=== PATIENT | female | born 1955 | race Caucasian/White ===

== ENCOUNTER 2016-06-30 18:12 | Emergency (ER) | payer SELFPAY ==
[2016-06-30 18:19] VITALS: TEMP 97.9
--- NOTE | 2016-06-30 19:24 | C.PDOC ---
History Of Present Illness 60F c/o headache that goes from the top of her head to the back and neck pain since yesterday. she took her BP several times today thinking maybe it was high. she does get similar headaches from time to time. no fever, chills, nausea , vomiting, visual change, or nasal congestion. Time Seen by Provider: 06/30/16 19:13 Chief Complaint (Nursing): High Blood Pressure Past Medical History Vital Signs: Last Vital Signs Temp 97.9 F 06/30/16 18:14 Pulse 75 06/30/16 20:24 Resp 20 06/30/16 20:24 BP 161/78 H 06/30/16 20:24 Pulse Ox 98 06/30/16 22:23 Family History: States: Other Other Family History: nc - Social History Hx Alcohol Use: No Hx Substance Use: No Review Of Systems Constitutional: Negative for: Fever, Chills, Weakness, Malaise Eyes: Negative for: Vision Change ENT: Negative for: Nose Discharge, Nose Congestion Cardiovascular: Negative for: Chest Pain Respiratory: Negative for: Shortness of Breath Gastrointestinal: Negative for: Nausea, Vomiting Neurological: Negative for: Weakness, Numbness Physical Exam - Physical Exam Appears: Well, Non-toxic, No Acute Distress Skin: Warm, Dry Head: Atraumatic, Normacephalic Eye(s): bilateral: PERRL, EOMI Nose: No Discharge Oral Mucosa: Moist Neck: Normal ROM, Supple Cardiovascular: Rhythm Regular Respiratory: Normal Breath Sounds, No Decreased Breath Sounds Extremity: No Swelling Neurological/Psych: Oriented x3, Normal Cranial Nerves, No Cerebellar Signs, Normal Motor, Normal Sensation, Other (no focal deficits) Gait: Steady ED Course And Treatment O2 Sat by Pulse Oximetry: 98 Medical Decision Making Medical Decision Makinpm the pt reports feeling much better. she is comfortable w dc. follow up and return precautions advised. sinusitis seen on CT does not correlate clinically EXAM: CT Head Without Intravenous Contrast CLINICAL HISTORY: 60 years old, female; Condition or disease; Headache; Headache not specified TECHNIQUE: Axial computed tomography images of the head/brain without intravenous contrast. This CT exam was performed using one or more of the following dose reduction techniques: automated exposure control, adjustment of the mA and/or kV according to patient size, and/or use of iterative reconstruction technique. EXAM DATE/TIME: Exam ordered 06/30/2016 7:36 PM COMPARISON: No relevant prior studies available. FINDINGS: Brain: Unremarkable. No hemorrhage. No significant white matter disease. No edema. Ventricles: Unremarkable. No ventriculomegaly. Bones/joints: Unremarkable. No acute fracture. Soft tissues: Unremarkable. Sinuses: Air fluid levels are noted within the right sphenoid sinus. Mucosal thickening is noted within the ethmoid air cells bilaterally. Mastoid air cells: Unremarkable as visualized. No mastoid effusion. IMPRESSION: Acute sinusitis involving the sphenoid sinus. Chronic sinusitis involving the ethmoid air cells Disposition - Disposition Referrals: [facility] [Outside] Disposition: HOME/ ROUTINE Disposition Time: 22:17 Condition: IMPROVED Additional Instructions: Please follow up with a primary doctor. Return to the ER for any worsening symptoms or for any other concerns. Instructions: Acute Headache (ED) Forms: Gen Discharge Inst Turkmen Print Language: GUAMANIAN - Clinical Impression Clinical Impression: Headache
[2016-06-30 20:25] VITALS: BP 161/78; PULSE 75; RESP 20
[2016-06-30 22:19] VITALS: O2SAT 98
--- NOTE | 2016-07-01 07:22 | CT ---
PROCEDURE: CT HEAD WITHOUT CONTRAST. HISTORY: headache COMPARISON: None available. TECHNIQUE: Axial computed tomography images were obtained through the head/brain without intravenous contrast. Radiation dose: Total exam DLP = 637 mGy-cm. This CT exam was performed using one or more of the following dose reduction techniques: Automated exposure control, adjustment of the mA and/or kV according to patient size, and/or use of iterative reconstruction technique. FINDINGS: HEMORRHAGE: No intracranial hemorrhage. BRAIN: No mass effect or edema. No atrophy or chronic microvascular ischemic changes. Few punctate hypodensities in the bilateral basal ganglia which may represent prominent perivascular spaces versus small lacunar infarcts. VENTRICLES: Unremarkable. No hydrocephalus. CALVARIUM: Unremarkable. PARANASAL SINUSES: Air-fluid levels noted within the right sphenoid sinus. Mucosal thickening noted within the ethmoid air cells bilaterally. MASTOID AIR CELLS: Unremarkable as visualized. No inflammatory changes. OTHER FINDINGS: None. IMPRESSION: No acute intracranial abnormality. Probable acute sinusitis involving the sphenoid sinus. Probable chronic sinusitis involving the ethmoid air cells. These findings were preliminarily reported at 8:31 p.m. on 06/30/[address] Tasia Marshall from [facility].
--- NOTE | 2016-07-02 00:26 | CARD ---
APPROVED REPORT EKG Measurement Heart [id number] <Conclusion> Normal sinus rhythm Normal ECG
== END 2016-06-30 22:29 | disposition home or self-care (01) ==
LOC: C.ER 18:12
DX: R51 Headache (principal)

== ENCOUNTER 2017-05-23 15:10 | Emergency (ER) | payer OTHER ==
[2017-05-23 15:21] VITALS: TEMP 97.8; O2SAT 98
--- NOTE | 2017-05-23 15:54 | C.PDOC ---
History Of Present Illness 61 year old female presents to ED for evaluation of lightheadedness, and tingling sensation to left hand that developed while getting dressed at 11:00 this morning. Pt states she checked her blood pressure at that time, and noticed it was high. She denies any chest pain, SOB, headache, weakness, or any other associated symptoms at present time. She denies any active symptoms at this time. Pt also complains of epigastric abdominal pain for the past 2 weeks and left flank pain for the last 3 months, notes she has history of frequent UTIs, and has had urethral reconstruction surgery in the past. Pt states she was evaluated by her PMD for this abdominal pain, and was started on omeprazole , and has a scheduled outpatient ultrasound tomorrow. Time Seen by Provider: 05/23/17 15:31 Chief Complaint (Nursing): High Blood Pressure History Per: Patient, Family History/Exam Limitations: no limitations Past Medical History Reviewed: Historical Data, Nursing Documentation, Vital Signs Vital Signs: Last Vital Signs Temp 97.8 F 05/23/17 15:18 Pulse 58 L 05/23/17 16:36 Resp 16 05/23/17 16:36 BP 132/57 L 05/23/17 16:36 Pulse Ox 98 05/23/17 16:36 - Medical History PMH: Gastritis, HTN Family History: States: Unknown Family Hx - Social History Hx Alcohol Use: No Hx Substance Use: No - Immunization History Hx Tetanus Toxoid Vaccination: No Hx Influenza Vaccination: No Hx Pneumococcal Vaccination: No Review Of Systems Except As Marked, All Systems Reviewed And Found Negative. Constitutional: Negative for: Fever, Chills Cardiovascular: Positive for: Light Headedness. Negative for: Chest Pain Respiratory: Negative for: Shortness of Breath Gastrointestinal: Positive for: Nausea, Abdominal Pain. Negative for: Vomiting , Diarrhea Neurological: Positive for: Other (tingling to left hand) Physical Exam - Physical Exam Additional Physical Exam Comments: Constitutional: No acute distress. Head: Normocephalic. Atraumatic. Eyes: PERRL. ENT: Moist mucous membranes. Neck: Supple. Cardiovascular: Regular rate. Radial pulse 2+ bilaterally. Chest: No tenderness. Respiratory: Clear to auscultation bilaterally. GI: Soft. Nontender. Nondistended. Back: No CVA tenderness. Musculoskeletal: No tenderness or swelling of extremities. Skin: No rash. Neurologic: Alert, no focal deficit. Oriented x 3. Cranial nerves II-XII intact. Sensation to light touch intact bilaterally. Motor 5/5 x 4. Gait normal. ED Course And Treatment - Laboratory Results Result Diagrams: 05/23/17 15:54 05/23/17 15:54 O2 Sat by Pulse Oximetry: 98 Medical Decision Making Medical Decision Making: Plan: Blood work Urinalysis Urine culture CXR Reassess EKG: NSR 61bpm, No ST/T wave changes. CXR no consolidation. No effusion. Normal silhouette. Patient states she feels well and has no symptoms. Will discharge, instructed to keep appointment for US tomorrow. Disposition - Disposition Disposition: HOME/ ROUTINE Disposition Time: 17:10 Condition: STABLE Instructions: High Blood Pressure in Adults Forms: [facility] (Armenian), Gen Discharge Inst [place] - Clinical Impression Clinical Impression: Hypertension - Scribe Statement The provider has reviewed the documentation as recorded by the Kyleighibpeter Lopez All medical record entries made by the Kyleighibpeter were at my direction and personally dictated by me. I have reviewed the chart and agree that the record accurately reflects my personal performance of the history, physical exam, medical decision making, and the department course for this patient. I have also personally directed, reviewed, and agree with the discharge instructions and disposition.
[2017-05-23 15:57] LABS: BASO # 0.1 K/uL (0.0-0.2); BASO % 0.7 % (0.0-2.0); EOS # 0.1 K/uL (0.0-0.7); EOS % 0.8 % (0.0-4.0); HEMOGLOBIN 14.3 g/dL (11.0-16.0); LYMPH # 2.6 K/uL (1.0-4.3); LYMPH % 29.7 % (20.0-40.0); MEAN CELL VOLUME 89.3 fL (81.0-99.0); MEAN CORPUSCULAR HGB CONC 34.8 g/dL (33.0-37.0); MEAN PLATELET VOLUME 8.2 fL (7.2-11.7); MONO # 0.6 K/uL (0.0-0.8); MONO % 7.3 % (0.0-10.0); NEUT # 5.4 K/uL (1.8-7.0); NEUT % 61.5 % (50.0-75.0); RBC 4.62 Mil/uL (3.80-5.20); RED CELL DISTRIBUTION WIDTH 13.5 % (11.5-14.5); WHITE BLOOD COUNT 8.8 K/uL (4.8-10.8)
[2017-05-23 16:09] LABS: ALB/GLOB RATIO 1.2 (1.0-2.1); ALBUMIN 4.5 g/dL (3.5-5.0); ALT/SGPT 22 U/L (9-52); AST/SGOT 29 U/L (14-36); BLOOD UREA NITROGEN 12 mg/dL (7-17); CALCIUM 9.5 mg/dl (8.6-10.4); GFR AFRICAN-AMERICAN > 60; GFR NON-AFRICAN AMERICAN > 60; LIPASE 67 U/L (23-300)
[2017-05-23 16:51] LABS: SQUAMOUS EPITHIAL 3 /hpf (0-5); URINE BACTERIA RARE (<OCC); URINE BILIRUBIN NEGATIVE (NEGATIVE); URINE BLOOD NEGATIVE (NEGATIVE); URINE CLARITY Clear (Clear); URINE COLOR Straw (YELLOW); URINE GLUCOSE (UA) NORMAL (Normal); URINE LEUKOCYTE ESTERASE NEG Leu/uL (Negative); URINE PROTEIN NEGATIVE (NEGATIVE); URINE UROBILINOGEN NORMAL mg/dL (0.2-1.0)
[2017-05-23 16:54] VITALS: BP 132/57; PULSE 58; RESP 16
--- NOTE | 2017-05-23 17:10 | RAD ---
Chest x-ray two views History: Hypertension. Comparison: 05/23/2017 Findings: Biapical pleural thickening with upper lobe granulomatous changes. Diffuse increased interstitial lung markings. Few small scattered nodular densities in both lung mcdermott; for example, in the right mid to lower lung zone laterally. Tortuous ectatic aorta. Bibasilar breast and nipple shadows. Degenerative changes in the spine and shoulders. Impression: Biapical pleural thickening with upper lobe granulomatous changes. Diffuse increased interstitial lung markings. Few small scattered nodular densities in both lung mcdermott; for example, in the right mid to lower lung zone laterally. Tortuous ectatic aorta. Bibasilar breast and nipple shadows. Degenerative changes in the spine and shoulders.
--- NOTE | 2017-05-25 19:27 | CARD ---
APPROVED REPORT EKG Measurement Heart [id number] <Conclusion> Normal sinus rhythm Possible Left atrial enlargement Low voltage QRS Borderline ECG
== END 2017-05-23 17:31 | disposition home or self-care (01) ==
LOC: C.ER 15:10
DX: I10 Essential (primary) hypertension (principal)